=== PATIENT | male | born 1980 | race Caucasian/White ===

== ENCOUNTER 2016-09-06 17:52 | Emergency (ER) | payer MEDICARE, MEDICAID ==
[~2016-09-06] VITALS: Ht 185.4 cm; Wt 89.4 kg
[~2016-09-06 17:52] MED LIST: CEPH-376 PO; MULT-658 PO; OXYC-223 PO
[2016-09-06 17:53] VITALS: BP 129/71
== END 2016-09-06 19:34 | disposition home or self-care (01) ==
LOC: ED 18:43
DX: M25.571 Pain in right ankle and joints of right foot (principal); Z85.9 Personal history of malignant neoplasm, unspecified
CPT/HCPCS: 99284